=== PATIENT | female | born 1960 | race Caucasian/White ===

== ENCOUNTER 2016-12-02 19:48 | Emergency (ER) | payer OTHER ==
[~2016-12-02] VITALS: Ht 160 cm; Wt 65.0 kg
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
[2016-12-02 20:21] VITALS: BP 134/82; PULSE 99; RESP 16; TEMP 98.3; O2SAT 96
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
== END 2016-12-02 21:33 | disposition home or self-care (01) ==
LOC: NEDAMB 19:48
DX: S90.31XA Contusion of right foot, initial encounter (principal); Z72.0 Tobacco use; V89.2XXA Person injured in unspecified motor-vehicle accident, traffic, initial encounter; Y92.410 Unspecified street and highway as the place of occurrence of the external cause
CPT/HCPCS: 73610; 73630; 99284; E0113